=== PATIENT | female | born 1955 | race Caucasian/White ===

== ENCOUNTER 2024-03-02 10:31 | Emergency (ER) | payer BC ==
[2024-03-02] MEDS ORDERED: Lorazepam 1 MG TAB ONE (10:52)
== END 2024-03-02 13:00 | disposition home or self-care (01) ==
LOC: CSHERS 10:31
DX: S61.211A Laceration without foreign body of left index finger without damage to nail, initial encounter (principal); S61.213A Laceration without foreign body of left middle finger without damage to nail, initial encounter; W26.0XXA Contact with knife, initial encounter
CPT/HCPCS: 99282